=== PATIENT | female | born 1995 | race Caucasian/White ===

== ENCOUNTER 2018-10-29 01:03 | Emergency (ER) | payer OTHER, MEDICAID ==
[~2018-10-29] VITALS: Ht 162.6 cm; Wt 65.0 kg
[2018-10-29 01:12] VITALS: Ht 162.6 cm; Wt 65.0 kg
[2018-10-29] MEDS ORDERED: SOD CHLORIDE 0.9% 650 ML IV ONE (01:30)
--- NOTE | 2018-10-29 02:09 | ERD ---
ER Documentation Chief Complaint Chief Complaint WEAKNESS X TODAY. HPI This is a 23-year-old female with a past medical history of insulin-dependent diabetes, noncompliant on her medications, polysubstance abuse who is presenting with feeling generally unwell for several days. The patient reports issues with her pump and her glucometer. Her sugars have been reading high for the last several days. The patient reports feeling generally unwell with full body aches and general cramping abdominal pain beginning today. The patient could not get through her workday today, and went home early, but her symptoms persisted which is ultimately what prompted her to come to the emergency department. The patient does endorse a history of polysubstance abuse. She admits to using heroin earlier today to help her calm down. She does endorse feeling dehydrated. The patient denies fever or chills. The patient has had no headache or vision changes. The patient does not endorse neck or back pain. The patient denies lightheadedness or dizziness. The patient has had no chest pain or trouble breathing. The patient denies nausea or vomiting. The patient denies changes to bowel movements or urination. She denies polyuria. The patient has had no focal deficits. The patient has had no weakness or numbness or tingling to the face or extremities. ROS All systems reviewed and are negative except as per history of present illness. Allergies Allergies: Coded Allergies: No Known Allergy (Unverified , 10/29/18) PMhx/Soc Medical and Surgical Hx: pt denies Surgical Hx History of Surgery: No Hx Neurological Disorder: No Hx Respiratory Disorders: No Hx Cardiac Disorders: Yes (Insulin-dependent diabetes) Hx Miscellaneous Medical Probl: Yes (GASTROPARESIS) Hx Alcohol Use: Yes (Occasional) Hx Substance Use: Yes (METH, HEROIN) Hx Tobacco Use: Yes Smoking Status: Current every day smoker FmHx Family History: diabetes Physical Exam Vitals Vital Signs Date Temp Pulse Resp B/P (MAP) Pulse Ox O2 O2 Flow FiO2 Time Delivery Rate 10/29/18 109 17 121/80 100 Room Air 06:01 (94) 10/29/18 103 14 100 Room Air 02:56 10/29/18 96.8 103 22 112/62 100 01:12 (79) Physical Exam Const: No acute distress Head: Atraumatic Eyes: Normal Conjunctiva ENT: Normal External Ears, Nose. Dry mucous membranes. Neck: Full range of motion. No meningismus. Resp: Clear to auscultation bilaterally Cardio: Regular rhythm, tachycardia, no murmurs Abd: Soft, non distended. General abdominal discomfort without exquisite tenderness. Normal bowel sounds Skin: No petechiae or rashes Back: No midline or flank tenderness Ext: No cyanosis, or edema Neur: Awake and alert Psych: Anxious Result Diagram: 10/29/18 0135 10/29/18 0135 Results 24 hrs Laboratory Tests Test 10/29/18 01:11 10/29/18 01:13 10/29/18 01:32 10/29/18 01:35 Bedside Glucose > 595 mg/dL > 595 mg/dL Blood Gas Blood venous Specimen Source Arterial Blood 10/29/2018 1:45:01 Date Drawn AM Arterial Blood VENOUS LINE Gas Puncture Site Dante Test N/A Venous Blood pH 7.353 Venous Blood pCO2 39.4 mmHG (Temp Corrected) Venous Blood pO2 24.7 mmHG (Temp Corrected) Venous Blood HCO3 21.4 mmol/L Venous Blood 44.9 mmHG Oxygen Saturation Venous Blood Base -3.8 mmol/L Excess Venous Blood 12.8 g/dl Total Hemoglobin Venous Blood 44.6 % Oxyhemoglobin Venous Blood 0.3 % Methemoglobin Carboxyhemoglobin 0.4 % Blood Gas 37.0 C Temperature Blood Gas ROOM AIR Modality FiO2 21.0 % Blood Gas Notified Whom Blood Gas 10/29/2018 1:51:36 Notified Time AM White Blood Count 15.4 10^3/ul Red Blood Count 4.98 10^6/ul Hemoglobin 12.7 g/dl Hematocrit 38.0 % Mean Corpuscular 76.3 fl Volume Mean Corpuscular 25.5 pg Hemoglobin Mean Corpuscular 33.4 g/dl Hemoglobin Concen t Red Cell 15.1 % Distribution Width Platelet Count 500 10^3/UL Mean Platelet 10.2 fl Volume Immature 0.500 % Granulocytes % Neutrophils % 77.9 % Lymphocytes % 14.5 % Monocytes % 6.8 % Eosinophils % 0.0 % Basophils % 0.3 % Nucleated Red 0.0 /100WBC Blood Cells % Immature 0.070 10^3/ul Granulocytes # Neutrophils # 12.0 10^3/ul Lymphocytes # 2.2 10^3/ul Monocytes # 1.1 10^3/ul Eosinophils # 0.0 10^3/ul Basophils # 0.0 10^3/ul Nucleated Red 0.0 10^3/ul Blood Cells # Sodium Level 125 mmol/L Potassium Level 4.9 mmol/L Chloride Level 85 mmol/L Carbon Dioxide 21 mmol/L Level Anion Gap 19 Blood Urea 30 mg/dl Nitrogen Creatinine 0.92 mg/dl Est Glomerular > 60 mL/min Filtrat Rate mL/min Glucose Level 756 mg/dl Calcium Level 10.4 mg/dl Phosphorus Level 5.7 mg/dl Magnesium Level 2.2 mg/dl Test 10/29/18 02:48 10/29/18 03:21 10/29/18 04:05 10/29/18 04:50 Bedside Glucose 583 mg/dL 511 mg/dL 410 mg/dL 389 mg/dL Test 10/29/18 05:51 Bedside Glucose 282 mg/dL Current Medications Medications Dose Sig/[place] Start Time Status Last (Trade) Ordered Route PRN Stop Time Admin Dose Reason Admin Sodium 650 ml @ ONCE ONCE 10/29/18 DC 10/29/18 Chloride 650 mls/hr IV 01:30 10/29/18 01:35 02:29 Sodium 1,000 ml @ Q1H ONCE 10/29/18 DC 10/29/18 Chloride 1,000 mls/hr IV 03:00 10/29/18 02:48 03:59 Insulin 10 unit ONCE ONCE 10/29/18 DC 10/29/18 Human SC 03:00 10/29/18 02:50 Regular 03:01 (Humulin R) Insulin 10 unit ONCE ONCE 10/29/18 DC 10/29/18 Human SC 04:00 10/29/18 04:12 Regular 04:01 (Humulin R) Sodium 1,000 ml @ Q1H ONCE 10/29/18 DC 10/29/18 Chloride 1,000 mls/hr IV 04:00 10/29/18 04:07 04:59 Procedures/MDM MDM The patient's presentation warrants further investigation. Previous medical records, if available, were reviewed. LABS The patient's laboratory testing was obtained and reviewed. No emergent treatment was required unless described below. CBC: Leukocytosis, which I suspect to be reactive, low clinical suspicion for a systemic infection. Microcytosis without anemia. Thrombocytosis, likely reactive. Chemistry: No E/o severe acidosis or alkalosis or renal failure or liver disease. Significant hyperglycemia without diabetic ketoacidosis VBG: Unremarkable. TREATMENT/DISPOSITION The patient presents for hyperglycemia, likely related to insulin noncompliance due to issues with her insulin pump and glucometer. I do not see evidence of DKA at this time. The patient was given IV fluids in the emergency department. She is also treated with insulin to bring her sugar down. After serial management in the emergency department, the patient's blood sugar decreased to below 300. The patient may continue her management at home. She understands importance of following up with her primary care physician for longitudinal care. The patient does also endorse abdominal cramping. She has a history of gastroparesis. On my exam, she does not have any specific tenderness. The patient presents with abdominal pain. The patient does not have any evidence of peritonitis. The patient does not have clinical symptoms concerning for mesenteric ischemia or ischemic colitis. The patient does not have right upper quadrant tenderness, and I have low suspicion for gallstones, cholecystitis or biliary colic. The patient does not have any epigastric pain. I have low suspicion for gastritis, PUD or GERD. The patient does not have left upper quadrant tenderness. I have low suspicion for pancreatitis. The patient does not have any right lower quadrant tenderness, or periumbilical tenderness. I have low suspicion for appendicitis. The patient does not have suprapubic tenderness. I have decreased suspicion for cystitis. The patient does not have any left lower quadrant tenderness, and I have low suspicion for diverticulosis or diverticulitis. The patient does not have any flank tenderness. The patient does not have gross hematuria. I have decreased suspicion for nephrolithiasis or renal colic. The patient does not have any palpable pulsatile mass or severe abdominal pain radiating to the back. I have low suspicion for aortic aneurysm, dissection or rupture. The patient was counseled on substance abuse and offered resources for cessation. DISCHARGE Upon reevaluation of the patient, symptoms have improved. No emergent diagnoses were identified. At this time, I feel that the patient stable for discharge. The patient was instructed to follow-up with a primary care physician in 1-3 days. The patient will be given strict precautions with which to return to the emergency department. Prescriptions: None. The patient reports that she got her insulin pump working today, but that it was too late to reverse her course on her own. Disclaimer: Inadvertent spelling and grammatical errors are likely due to EHR/dictation software use and do not reflect on the overall quality of patient care. Note that the electronic time recorded on this note does not necessarily reflect the actual time of the patient encounter. Departure Diagnosis: Primary Impression: Hyperglycemia Additional Impressions: Abdominal cramping Leukocytosis Leukocytosis type: unspecified Qualified Codes: D72.829 - Elevated white blood cell count, unspecified Thrombocytosis Polysubstance abuse History of insulin dependent diabetes mellitus Condition: Stable Patient Instructions: Abdominal Pain, Hyperglycemia (High Blood Sugar), Substance abuse Additional Instructions: Thank you for for coming to [facility] for your care today. Please ask your nurse or provider if you have questions about your care today and do not leave until all your questions have been answered. Please use any m edications given as directed and follow-up with your doctor (or the doctor you were referred to) in the next 1-3 days. If you do not have a primary care doctor you may follow up at the [facility] or [facility] (listed below). You may also use motrin and tylenol as needed for fever and/or pain unless instructed otherwise by your provider or nurse. Indications for more urgent follow-up have been discussed, but you may return to the Emergency Department at ANY time for any worrisome or worsening symptoms. If you have abdominal pain, please know that no test or exam you received is per fect and you should follow up within 8 hours for continued pain. If you had any imaging studies today, such as an X-Ray or CT Scan, these studies will be reviewed later by a radiologist. You will be called if there are important findings that were not identified today, so make sure the contact info rmation you provided at registration is correct. If you received any narcotic pain control medicine today, such as Vicodin, Morphine or Dilaudid, your coordination and judgment may be affected for a number of hours. Please do not drive or operate heavy machinery, and you may want someone to assist you at home. If you were given a prescription for narcotic medication, be aware that it is very addictive- use sparingly and only if necessary. PLEASE SEEK FURTHER EVALUATION AND MANAGEMENT AT YOUR DOCTORS OFFICE WITHIN THE NEXT 1-3 DAYS. IT IS YOUR RESPONSIBILITY TO MAKE AN APPOINTMENT FOR FOLOW-UP CARE. IF YOU HAVE A PRIMARY DOCTOR, PLEASE CALL THEIR OFFICE TO SCHEDULE AN APPOINTMENT FOR FOLLOW UP. IF YOU DO NOT HAVE A PRIMARY DOCTOR YOU CAN CALL OUR PHYSICIAN REFERRAL HOTLINE AT IF YOU CAN NOT AFFORD TO SEE A PHYSICIAN YOU CAN CHOSE FROM THE FOLLOWING [facility] CL[facility]ICS: [facility] [address] [facility] [address] [facility]. [facility] [address] [facility] [address] [facility] [address] [facility]. [facility]. [address] TOMY JOHNSON MD Oct 29, 2018 02:03
[2018-10-29] MEDS ORDERED: INSULIN REGULAR, HUMAN 100 UNIT/1 ML 3ML VIAL SC ONE ×2 (03:00→04:00)
[2018-10-29] MEDS ORDERED: SOD CHLORIDE 0.9% 1,000 ML IV ONE ×2 (03:00→04:00)
[2018-10-29 06:48] VITALS: BP 118/70; PULSE 114; RESP 16
== END 2018-10-29 07:00 | disposition home or self-care (01) ==
LOC: E/R 01:03
DX: E11.65 Type 2 diabetes mellitus with hyperglycemia (principal); F17.210 Nicotine dependence, cigarettes, uncomplicated; D72.829 Elevated white blood cell count, unspecified; D47.3 Essential (hemorrhagic) thrombocythemia; R10.84 Generalized abdominal pain; F19.10 Other psychoactive substance abuse, uncomplicated; Z79.4 Long term (current) use of insulin
CPT/HCPCS: 36415; 80048; 82803; 82962; 83735; 84100; 85025; J1815; J7030; 96372